=== PATIENT | male | born 1960 | race African-American/Black ===

== ENCOUNTER 2025-06-11 23:29 | Emergency (ER) | payer MEDICARE, OTHER ==
[~2025-06-11] VITALS: Ht 185.4 cm; Wt 97.1 kg
[2025-06-11] MEDS ORDERED: IBUPROFEN 400 MG TABLET ONE (23:58)
[2025-06-12] MEDS: IBUPROFEN 400 MG TABLET PO ONE (00:19)
[2025-06-12 01:27] VITALS: BP 137/82; TEMP 98; O2SAT 98
== END 2025-06-12 01:28 | disposition home or self-care (01) ==
LOC: ER 23:31
DX: S23.3XXA Sprain of ligaments of thoracic spine, initial encounter (principal); S83.91XA Sprain of unspecified site of right knee, initial encounter; S83.92XA Sprain of unspecified site of left knee, initial encounter; S50.01XA Contusion of right elbow, initial encounter; S70.01XA Contusion of right hip, initial encounter; V89.2XXA Person injured in unspecified motor-vehicle accident, traffic, initial encounter; Y93.89 Activity, other specified; Y92.410 Unspecified street and highway as the place of occurrence of the external cause; Y99.8 Other external cause status
CPT/HCPCS: 72128-TC; 73080-TC; 73502; 73564-TC